=== PATIENT | female | born 1995 | race Caucasian/White ===

== ENCOUNTER 2017-05-20 00:27 | Emergency (ER) | payer OTHER ==
[~2017-05-20] VITALS: Ht 157.5 cm; Wt 63.5 kg
[2017-05-20] MEDS ORDERED: PROAIR HFA8.5 GM INH (01:35)
[2017-05-20] MEDS ORDERED: SPACERADULT INH (01:35)
[2017-05-20] MEDS ORDERED: PREDNISONE50 MG PO (01:35)
[2017-05-20 01:43] VITALS: BP 134/71
--- NOTE | 2017-05-20 12:24 | EKG ---
[place] [address] ELECTROCARDIOGRAM REPORT Name: GEETHA COUCH Room: [facility]#: [id number] Admission: 05/20/17 Attend Phys: Discharge: 05/20/17 Date of : [birth year] Report #: [id number] THIS REPORT FOR: //name// [facility] ED Test Date: 2017-05-20 Test Time: 00:31:46 Pat Name: GEETHA COUCH Department: Room: Gender: F [employer]: MARÍA : 1995 Requested By: Beryl Castaneda Order Number: [id number] MD: Chester Wright Measurements Intervals [place] Rate: 84 P: 73 [place]: 150 QRS: 65 QRSD: 78 T: 48 QT: 355 QTc: 420 Interpretive Statements Sinus rhythm No previous ECG available for comparison Electronically Signed On 05-20-2017 12:24:26 CDT by Chester Wright [email or web address] <ELECTRONICALLY SIGNED> By: Chester Wright MD, [facility] 05/20/17 1224 0031 0031 Chester Wright MD, FACC /EPI
== END 2017-05-20 01:44 | disposition home or self-care (01) ==
LOC: M.ERS 00:27
DX: J40 Bronchitis, not specified as acute or chronic (principal)

== ENCOUNTER 2018-09-07 20:29 | Emergency (ER) | payer OTHER ==
[~2018-09-07] VITALS: Ht 160 cm; Wt 63.5 kg
[~2018-09-07 20:29] MED LIST: PREDNISONE50 MG PO; PROAIR HFA8.5 GM INH; SPACERADULT INH
[2018-09-07 20:40] VITALS: BP 144/104
[2018-09-07] MEDS ORDERED: ACYCLOVIR 200200 MG PO (21:09)
[2018-09-11 04:09] LABS: HSV 1 DNA Positive (Negative); HSV 2 DNA Negative (Negative)
== END 2018-09-07 21:27 | disposition home or self-care (01) ==
LOC: M.ERS 20:29
PROVIDERS: Physician Assistant
DX: A60.09 Herpesviral infection of other urogenital tract (principal); K21.9 Gastro-esophageal reflux disease without esophagitis

== ENCOUNTER 2018-10-19 23:05 | Emergency (ER) | payer OTHER ==
[~2018-10-19] VITALS: Ht 157.5 cm; Wt 68.0 kg
[~2018-10-19 23:05] MED LIST changes: +ACYCLOVIR 200200 MG PO
[2018-10-19 23:36] LABS: HEMATOCRIT 41.6 % (37.0-47.0); HEMOGLOBIN 13.9 gm/dL (12.0-15.0); MCH 29.9 pg (26.0-34.0); MCHC 33.5 g/dL (28.0-37.0); MCV 89.3 fL (80.0-100.0); NUCLEATED RBCS 0 /100WBC; PLATELET COUNT* 278 thou/uL (150-400); RBC 4.66 mil/uL (4.20-5.00); WBC 10.2 thou/uL (4.0-11.0)
[2018-10-19 23:42] LABS: APTT 24.9 Seconds (25.0-31.3); PROTIME 10.4 Seconds (9.20-11.50)
[2018-10-19 23:49] LABS: CALCIUM 8.8 mg/dL (8.5-10.1); CREATININE 0.7 mg/dL (0.6-1.3); POTASSIUM 3.6 mmol/L (3.5-5.1)
[2018-10-19 23:53] LABS: TOTAL BILIRUBIN 0.5 mg/dL (<0.1-1.0); TOTAL PROTEIN 8.1 g/dL (6.4-8.2)
[2018-10-20 00:05] LABS: URINE BILIRUBIN NEGATIVE (Negative); URINE BLOOD NEGATIVE (Negative); URINE CLARITY CLEAR; URINE COLOR YELLOW; URINE GLUCOSE-RANDOM NEGATIVE (Negative); URINE KETONES 2+ (Negative); URINE LEUKOCYTES-REFLEX NEGATIVE (Negative); URINE NITRITE-REFLEX NEGATIVE (Negative); URINE PROTEIN NEGATIVE (Negative); URINE SPECIFIC GRAVITY 1.025 (1.005-1.030); URINE UROBILINOGEN 0.2 E.U./dl (0.2-1.0)
[2018-10-20] MEDS ORDERED: ZOFRAN ODT4 MG SUBLING (00:54)
[2018-10-20 01:11] VITALS: BP 138/93
[2018-10-20 01:20] LABS: ABSOLUTE EOSINOPHILS 0.1 thou/uL (0.0-0.7); ABSOLUTE LYMPHOCYTES 1.2 thou/uL (0.8-5.3); ABSOLUTE MONOCYTES 0.5 thou/uL (0.0-1.2); ABSOLUTE NEUTROPHILS 8.4 thou/uL (1.6-8.1); PLATELET ESTIMATE ADEQUATE
== END 2018-10-20 01:14 | disposition home or self-care (01) ==
LOC: M.ERS 23:05
PROVIDERS: Family Medicine
DX: R10.13 Epigastric pain (principal); R11.2 Nausea with vomiting, unspecified; R19.7 Diarrhea, unspecified; K21.9 Gastro-esophageal reflux disease without esophagitis